=== PATIENT | female | born 1975 | race American Indian/Alaskan Native ===

== ENCOUNTER 2017-06-04 07:13 | Emergency (ER) | payer SELFPAY ==
[2017-06-04 07:42] VITALS: BP 159/104
[2017-06-04 08:05] LABS: Basophils % (Auto) 0.5 % (0.0-1.8); Eosinophils % (Auto) 0.7 % (0.0-4.3); Hematocrit 40.4 % (30.3-42.9); Hemoglobin 13.1 gm/dl (10.1-14.3); Mean Corpuscular HGB Conc 33 % (30-34); Mean Corpuscular Hemoglobin 29 pg (28-32); Mean Corpuscular Volume 89 fl (79-97); Platelet Count 286 K/mm3 (140-440); Red Blood Count 4.55 M/mm3 (3.65-5.03); Red Cell Distribution Width 14.4 % (13.2-15.2); White Blood Count 16.8 K/mm3 (4.5-11.0)
[2017-06-04 08:15] LABS: Anion Gap 16 mmol/L; BUN/Creatinine Ratio 11.42; Blood Urea Nitrogen 8 mg/dL (7-17); Calcium 8.4 mg/dL (8.4-10.2); Carbon Dioxide 23 mmol/L (22-30); Chloride 103.4 mmol/L (98-107); Glucose 87 mg/dL (65-100); Potassium 3.6 mmol/L (3.6-5.0); Sodium 139 mmol/L (137-145)
--- NOTE | 2017-06-04 08:29 | Emergency Department Report ---
ED ENT HPI - General Chief complaint: Sore Throat Stated complaint: SORE THROAT/BODY ACHES Time Seen by Provider: 06/04/17 08:26 Source: patient Mode of arrival: Ambulatory Limitations: No Limitations - History of Present Illness Initial comments: 42-year-old female past medical history hypertension, chlamydia infection, arthritis, GERD presents with complaint of 2 days of body aches and sore throat , also complaining of slightly increased urinary frequency. MD complaint: sore throat, other (increased urinary frequency) Onset/Timin Location: throat Severity: mild Quality: aching Consistency: intermittent Improves with: none Worsens with: none Context- Dental: history of dental caries - Related Data Home Medications Medication Instructions Recorded Confirmed Last Taken Amlodipine Besylate/Benazepril 1 cap PO DAILY 06/03/14 04/12/16 06/10/14 20:30 [amLODIPine-Benazepril 10/20 mg] ALPRAZolam [Xanax TAB] 1 mg PO TID PRN 04/12/16 04/12/16 Unknown Previous Rx's Medication Instructions Recorded Last Taken Type traMADol [Ultram 50 MG tab] 50 mg PO Q6HR PRN #14 tablet 04/12/16 Unknown Rx Benzocaine/Menthol [Cepacol Sore 1 each MM Q4H PRN #1 box 06/04/17 Unknown Rx Throat Lozenge] Naproxen [Naprosyn TAB] 500 mg PO BID PRN #20 tablet 06/04/17 Unknown Rx metroNIDAZOLE [Flagyl TAB] 500 mg PO Q12HR #14 tab 06/04/17 Unknown Rx Allergies Allergy/AdvReac Type Severity Reaction Status Date / Time No Known Allergies Allergy Verified 06/03/14 14:45 ED Dental HPI - General Chief complaint: Sore Throat Stated complaint: SORE THROAT/BODY ACHES Time Seen by Provider: 06/04/17 08:26 Source: patient Mode of arrival: Ambulatory Limitations: No Limitations - Related Data Home Medications Medication Instructions Recorded Confirmed Last Taken Amlodipine Besylate/Benazepril 1 cap PO DAILY 06/03/14 04/12/16 06/10/14 20:30 [amLODIPine-Benazepril 10/20 mg] ALPRAZolam [Xanax TAB] 1 mg PO TID PRN 04/12/16 04/12/16 Unknown Previous Rx's Medication Instructions Recorded Last Taken Type traMADol [Ultram 50 MG tab] 50 mg PO Q6HR PRN #14 tablet 04/12/16 Unknown Rx Benzocaine/Menthol [Cepacol Sore 1 each MM Q4H PRN #1 box 06/04/17 Unknown Rx Throat Lozenge] Naproxen [Naprosyn TAB] 500 mg PO BID PRN #20 tablet 06/04/17 Unknown Rx metroNIDAZOLE [Flagyl TAB] 500 mg PO Q12HR #14 tab 06/04/17 Unknown Rx Allergies Allergy/AdvReac Type Severity Reaction Status Date / Time No Known Allergies Allergy Verified 06/03/14 14:45 ED Review of Systems ROS: Stated complaint: SORE THROAT/BODY ACHES Other details as noted in HPI Constitutional: denies: chills, fever Eyes: denies: eye pain, eye discharge, vision change ENT: throat pain. denies: ear pain Respiratory: denies: cough, shortness of breath, wheezing Cardiovascular: denies: chest pain, palpitations Endocrine: no symptoms reported Gastrointestinal: denies: abdominal pain, nausea, diarrhea Genitourinary: discharge (whitish vaginal discharge). denies: urgency, dysuria Musculoskeletal: denies: back pain, joint swelling, arthralgia Skin: denies: rash, lesions Neurological: denies: headache, weakness, paresthesias Psychiatric: denies: anxiety, depression Hematological/Lymphatic: denies: easy bleeding, easy bruising ED Past Medical Hx - Past Medical History Previous Medical History?: Yes Hx Hypertension: Yes (since 2006) Hx Heart Attack/AMI: No Hx Congestive Heart Failure: No Hx Diabetes: No Hx GERD: Yes Hx Liver Disease: No Hx Renal Disease: No Hx Sickle Cell Disease: (was told she had sickle cell trait but another MD told her she didn't have ) Hx Arthritis: Yes (polyarthritis x 3yrs) Hx Seizures: No Hx Asthma: No Hx COPD: No Hx HIV: No - Surgical History Past Surgical History?: Yes Hx Pacemaker: No Hx Internal Defibrillator: No Hx Appendectomy: Yes Additional Surgical History: hysterectomy 06/11/14, right foot surgery 2007 - Social History Smoking Status: Never Smoker Substance Use Type: Non Opiate Pain, Prescribed - Medications Home Medications: Home Medications Medication Instructions Recorded Confirmed Last Taken Type Amlodipine Besylate/Benazepril 1 cap PO DAILY 06/03/14 04/12/16 06/10/14 20:30 History [amLODIPine-Benazepril 10/20 mg] ALPRAZolam [Xanax TAB] 1 mg PO TID PRN 04/12/16 04/12/16 Unknown History traMADol [Ultram 50 MG tab] 50 mg PO Q6HR PRN #14 tablet 04/12/16 Unknown Rx Benzocaine/Menthol [Cepacol Sore 1 each MM Q4H PRN #1 box 06/04/17 Unknown Rx Throat Lozenge] Naproxen [Naprosyn TAB] 500 mg PO BID PRN #20 tablet 06/04/17 Unknown Rx metroNIDAZOLE [Flagyl TAB] 500 mg PO Q12HR #14 tab 06/04/17 Unknown Rx ED Physical Exam - General Limitations: No Limitations General appearance: alert, in no apparent distress - Head Head exam: Present: atraumatic, normocephalic - Eye Eye exam: Present: normal appearance, PERRL, EOMI - ENT ENT exam: Present: mucous membranes moist - Expanded ENT Exam Expanded Throat exam: Positive: tonsillar erythema (no peritonsillar abscess but some tonsillar erythema) - Neck Neck exam: Present: normal inspection, lymphadenopathy (anterior cervical adenopathy) - Respiratory Respiratory exam: Present: normal lung sounds bilaterally. Absent: respiratory distress - Cardiovascular Cardiovascular Exam: Present: regular rate, normal rhythm. Absent: systolic murmur, diastolic murmur, rubs, gallop - GI/Abdominal GI/Abdominal exam: Present: soft, normal bowel sounds - External exam: Present: normal external exam Speculum exam: Present: vaginal discharge (white vaginal discharge) Bi-manual exam: Present: normal bi-manual exam - Extremities Exam Extremities exam: Present: normal inspection - Back Exam Back exam: Present: normal inspection, full ROM - Neurological Exam Neurological exam: Present: alert, oriented X3, CN II-XII intact, normal gait - Psychiatric Psychiatric exam: Present: normal affect, normal mood - Skin Skin exam: Present: warm, dry, intact, normal color. Absent: rash ED Course Vital Signs 06/04/17 07:39 Temperature 99.4 F Pulse Rate 85 Respiratory 20 Rate Blood Pressure 159/104 O2 Sat by Pulse 100 Oximetry ED Medical Decision Making - Lab Data Result diagrams: 06/04/17 07:45 06/04/17 07:45 - Medical Decision Making A/P: Tonsillitis, bacterial vaginosis, cervicitis 1- Treatment with Bicillin, Motrin 800 when necessary, throat lozenges 2- metronidazole 7 day course for BV,. Empiric cervicitis tx, GC culture sent, no signs of PID 3- follow-up with primary care and obgyn Critical care attestation.: If time is entered above; I have spent that time in minutes in the direct care of this critically ill patient, excluding procedure time. ED Disposition Clinical Impression: Tonsillitis, Bacterial vaginosis Disposition: TO HOME OR SELFCARE Is pt being admited?: No Does the pt Need Aspirin: No Condition: Stable Instructions: Bacterial Vaginosis (ED), Tonsillitis (ED) Prescriptions: Benzocaine/Menthol [Cepacol Sore Throat Lozenge] 1 each MM Q4H PRN #1 box PRN Reason: Sore Throat metroNIDAZOLE [Flagyl TAB] 500 mg PO Q12HR #14 tab Naproxen [Naprosyn TAB] 500 mg PO BID PRN #20 tablet PRN Reason: Pain Referrals: EN GARCIA MD [Referring] - 3-5 Days DAVID GRAY MD [Staff Physician] - 3-5 Days Forms: STI Treatment and Prevention, Work/School Release Form(ED) Time of Disposition: 09:31
[2017-06-04 08:30] LABS: Bilirubin,Urine NEG (Negative); Blood,Urine NEG (Negative); Ketones,Urine 20 mg/dL (Negative); Leukocyte Esterase,Urine NEG (Negative); Mucus,Urine FEW /HPF; Nitrite,Urine NEG (Negative); Protein,Urine <15 mg/dL mg/dL (Negative); Urobilinogen,Urine < 2.0 mg/dL (<2.0); WBC,Urine < 1.0 /HPF (0.0-6.0)
[2017-06-04] MEDS ORDERED: MOTRIN PO ONE (08:45)
[2017-06-04] MEDS ORDERED: BICILLIN L-A IM ONE (09:29)
[2017-06-04] MEDS ORDERED: ZITHROMAX PO ONE (09:34)
[2017-06-04] MEDS ORDERED: XYLOCAINE 1% MPF 5 mL INFILTRATI ONE (09:34)
[2017-06-04] MEDS ORDERED: ROCEPHIN IM ONE (09:34)
== END 2017-06-04 09:59 | disposition home or self-care (01) ==
LOC: ED 07:13
DX: J03.90 Acute tonsillitis, unspecified (principal); N76.0 Acute vaginitis; I10 Essential (primary) hypertension; K21.9 Gastro-esophageal reflux disease without esophagitis; M19.90 Unspecified osteoarthritis, unspecified site
CPT/HCPCS: 36415; 80048; 81001; 81025; 85025; 87116; 87210; 87430; 87591; 96372; 99284; J0561; J0696

== ENCOUNTER 2017-09-21 05:16 | Emergency (ER) | payer SELFPAY ==
--- NOTE | 2017-09-21 09:08 | Emergency Department Report ---
ED Lower Extremity HPI - General Chief Complaint: Extremity Problem,Nontraumatic Stated Complaint: FOOT PAIN Time Seen by Provider: 09/21/17 08:50 Source: patient Mode of arrival: Ambulatory Limitations: No Limitations - History of Present Illness Initial Comments: States her ankles have bothered her for a long time but worse since starting a new job. No trauma. Complaint: ankle injury -: Gradual, month(s) Injury: Ankle: Right, Left Type of Injury: unknown Place: home Severity: moderate Severity scale (0 -10): 7 Improves With: immobilization Worsens With: weight bearing Associated Symptoms: ambulatory. denies: swelling, numbness, tingling - Related Data Home Medications Medication Instructions Recorded Confirmed Last Taken Amlodipine Besylate/Benazepril 1 cap PO DAILY 06/03/14 04/12/16 06/10/14 20:30 [amLODIPine-Benazepril 10/20 mg] ALPRAZolam [Xanax TAB] 1 mg PO TID PRN 04/12/16 04/12/16 Unknown Previous Rx's Medication Instructions Recorded Last Taken Type Meloxicam 15 mg PO DAILY #30 tablet 09/21/17 Unknown Rx Allergies Allergy/AdvReac Type Severity Reaction Status Date / Time No Known Allergies Allergy Verified 06/03/14 14:45 ED Review of Systems ROS: Stated complaint: FOOT PAIN Other details as noted in HPI Comment: All other systems reviewed and negative Constitutional: denies: chills, fever Eyes: denies: eye pain, eye discharge, vision change ENT: denies: ear pain, throat pain Respiratory: denies: cough, shortness of breath, wheezing Cardiovascular: denies: chest pain, palpitations Endocrine: no symptoms reported Gastrointestinal: denies: abdominal pain, nausea, diarrhea Genitourinary: denies: urgency, dysuria, discharge Musculoskeletal: as per HPI. denies: back pain, joint swelling, arthralgia Skin: denies: rash, lesions Neurological: denies: headache, weakness, paresthesias Psychiatric: denies: anxiety, depression Hematological/Lymphatic: denies: easy bleeding, easy bruising ED Past Medical Hx - Past Medical History Previous Medical History?: Yes Hx Hypertension: Yes (since 2006) Hx Heart Attack/AMI: No Hx Congestive Heart Failure: No Hx Diabetes: No Hx GERD: Yes Hx Liver Disease: No Hx Renal Disease: No Hx Sickle Cell Disease: (was told she had sickle cell trait but another MD told her she didn't have ) Hx Arthritis: Yes (polyarthritis x 3yrs) Hx Seizures: No Hx Asthma: No Hx COPD: No Hx HIV: No - Surgical History Past Surgical History?: Yes Hx Pacemaker: No Hx Internal Defibrillator: No Hx Appendectomy: Yes Additional Surgical History: hysterectomy 06/11/14, right foot surgery 2007 - Social History Smoking Status: Never Smoker Substance Use Type: None - Medications Home Medications: Home Medications Medication Instructions Recorded Confirmed Last Taken Type Amlodipine Besylate/Benazepril 1 cap PO DAILY 06/03/14 04/12/16 06/10/14 20:30 History [amLODIPine-Benazepril 10/20 mg] ALPRAZolam [Xanax TAB] 1 mg PO TID PRN 04/12/16 04/12/16 Unknown History Meloxicam 15 mg PO DAILY #30 tablet 09/21/17 Unknown Rx ED Physical Exam - General Limitations: No Limitations General appearance: alert, in no apparent distress - Head Head exam: Present: atraumatic, normocephalic - Eye Eye exam: Present: normal appearance - ENT ENT exam: Present: mucous membranes moist - Neck Neck exam: Present: normal inspection - Respiratory Respiratory exam: Present: normal lung sounds bilaterally. Absent: respiratory distress - Cardiovascular Cardiovascular Exam: Present: regular rate, normal rhythm. Absent: systolic murmur, diastolic murmur, rubs, gallop - GI/Abdominal GI/Abdominal exam: Present: soft, normal bowel sounds - Extremities Exam Extremities exam: Present: normal inspection, other (normal exam. cms intact. ) - Back Exam Back exam: Present: normal inspection - Neurological Exam Neurological exam: Present: alert, oriented X3 - Psychiatric Psychiatric exam: Present: normal affect, normal mood - Skin Skin exam: Present: warm, dry, intact, normal color. Absent: rash ED Course Vital Signs 09/21/17 09:11 Temperature 97.6 F Pulse Rate 48 L Respiratory 22 Rate Blood Pressure 125/67 O2 Sat by Pulse 100 Oximetry - Reevaluation(s) Reevaluation #1: 09/21/17 10:11 NAD, stable for d/c. ED Lower Extremity MDM - Radiology Data Radiology results: report reviewed small bone spur R calcaneus otherwise normal, - Medical Decision Making Pt demanded imaging which is essentially negative. Discussed need for follow up. Pt states NSAID's upset stomach, advised to take with food as narcotics are not appropriate therapy for chronic ankle pain and that she will need to see ortho for further mgmt. - Differential Diagnosis sprain, fx, chronic pain, drug seeking Critical care attestation.: If time is entered above; I have spent that time in minutes in the direct care of this critically ill patient, excluding procedure time. ED Disposition Clinical Impression: Chronic ankle pain, bilateral Disposition: DC- TO HOME OR SELFCARE Is pt being admited?: No Condition: Good Instructions: Arthralgia (ED) Prescriptions: Meloxicam 15 mg PO DAILY #30 tablet Referrals: PRIMARY CARE, [Primary Care Provider] - 3-5 Days Time of Disposition: 10:15
[2017-09-21 09:14] VITALS: BP 125/67
--- NOTE | 2017-09-21 09:51 | XRay Report ---
BILATERAL ANKLES, 3 VIEWS HISTORY: Bilateral ankle pain. No history of trauma. FINDINGS: No comparison. Bone mineralization is normal. No displaced fracture, bone lesion, bony destruction or joint pathology is detected. There is a moderate plantar spur from the right calcaneus. The soft tissues are unremarkable. IMPRESSION: Unremarkable bilateral ankles. Right foot plantar spur.
== END 2017-09-21 10:40 | disposition home or self-care (01) ==
LOC: ED 05:16
DX: M25.571 Pain in right ankle and joints of right foot (principal); M25.572 Pain in left ankle and joints of left foot; G89.29 Other chronic pain; I10 Essential (primary) hypertension; K21.9 Gastro-esophageal reflux disease without esophagitis; M19.90 Unspecified osteoarthritis, unspecified site; Z90.710 Acquired absence of both cervix and uterus
CPT/HCPCS: 99283

== ENCOUNTER 2018-05-24 10:48 | Emergency (ER) | payer OTHER ==
[2018-05-24] MEDS ORDERED: MOTRIN PO ONE (12:32)
--- NOTE | 2018-05-24 12:32 | Emergency Department Report ---
Minor Respiratory - HPI Chief Complaint: Neck Pain/Injury Stated Complaint: THROAT Time Seen by Provider: 05/24/18 11:45 Duration: 3 Days Pain Location: Ear, Other (lump right neck) Severity: mild (4/10) Minor Respiratory: Yes Sore Throat (intermittent. No drooling or hoarseness.), Yes Able to Tolerate Fluids, Yes Ear Pain (right ear pain at 4/10), No Rhinorrhea, No Cough, No Sick Contacts, No Hemoptysis, No Chest Pain, No Shortness of Breath, No Fever Other History: This is a 43-year-old female here reporting that she is having right earache and lump of the right side of her neck for 3 days. She reports pain for the 4/10 achy. No medication taken for pain. Exacerbation or alleviating factors. Denies any fever or chills. Denies any cough, runny nose and nasal congestion, denies any chest pain or shortness of breath. Patient states that her primary care physician is Dr. Duglas Edge. Patient also reported that she is having dizziness with room spinning around states she is started having urinary earache. She denies any visual difficulties or headache. Denies any nausea or vomiting. ED Review of Systems ROS: Stated complaint: THROAT Other details as noted in HPI Constitutional: denies: chills, fever Eyes: denies: eye pain, eye discharge, vision change ENT: ear pain, other (right neck pain). denies: throat pain, dental pain, hearing loss, epistaxis, congestion Respiratory: denies: cough, shortness of breath, SOB with exertion, SOB at rest , stridor, wheezing Cardiovascular: denies: chest pain, palpitations, edema, syncope Gastrointestinal: denies: abdominal pain, nausea, vomiting, diarrhea Genitourinary: denies: abnormal menses, dyspareunia Musculoskeletal: myalgia (neck pain). denies: back pain, joint swelling, arthralgia Skin: denies: rash, lesions Neurological: vertigo. denies: headache, weakness, numbness, paresthesias, abnormal gait Psychiatric: depression Hematological/Lymphatic: swollen glands ED Past Medical Hx - Past Medical History Previous Medical History?: Yes Hx Hypertension: Yes (since 2006) Hx Heart Attack/AMI: No Hx Congestive Heart Failure: No Hx Diabetes: No Hx GERD: Yes Hx Liver Disease: No Hx Renal Disease: No Hx Sickle Cell Disease: Yes (sickle cell trait) Hx Arthritis: Yes (polyarthritis x 3yrs) Hx Seizures: No Hx Asthma: No Hx COPD: No Hx HIV: No - Surgical History Past Surgical History?: Yes Hx Pacemaker: No Hx Internal Defibrillator: No Hx Appendectomy: Yes Additional Surgical History: hysterectomy 06/11/14, right foot surgery 2007 - Family History Family history: hypertension - Social History Smoking Status: Never Smoker Substance Use Type: Alcohol, Prescribed - Medications Home Medications: Home Medications Medication Instructions Recorded Confirmed Last Taken Type Amlodipine Besylate/Benazepril 1 cap PO DAILY 06/03/14 04/12/16 06/10/14 20:30 History [amLODIPine-Benazepril 10/20 mg] ALPRAZolam [Xanax TAB] 1 mg PO TID PRN 04/12/16 04/12/16 Unknown History Meloxicam 15 mg PO DAILY #30 tablet 09/21/17 Unknown Rx Azithromycin [Zithromax Z-OSKAR] 250 mg PO DAILY 6 Days #1 pkg 05/24/18 Unknown Rx Cetirizine HCl [ZyrTEC] 10 mg PO QAM 14 Days #14 capsule 05/24/18 Unknown Rx Fluticasone [Flonase] 1 spray NS QDAY 14 Days #1 bottle 05/24/18 Unknown Rx Ibuprofen [Motrin] 600 mg PO Q8H PRN #12 tablet 05/24/18 Unknown Rx Meclizine [Antivert] 25 mg PO Q8H PRN #15 tablet 05/24/18 Unknown Rx Minor Respiratory Exam - Exam General: Vital signs noted. No distress. Alert and acting appropriately. This is a 43-year-old female patient well-nourished well-developed in no acute distress. HEENT: Yes Moist Mucous Membranes (uvula midline and oral airways patent), Yes Rhinorrhea, No Pharyngeal Erythema, No Pharyngeal Exudates, No Conjuctival Injection, No Frontal Tenderness, No Maxillary Tenderness Ear: Right TM Erythema (loss of bony landmark), Neither TM Bulge (bilateral TM congested), Neither EAC Pain, Neither EAC Discharge Neck: Yes Adenopathy (anterior cervical with tenderness to palpate.), Yes Supple (full range of motion.) Lungs: Yes Good Air Exchange (CTAB), No Wheezes, No Ronchi, No Stridor, No Cough , No Labored Respirations, No Retractions, No Use of Accessory Muscles, No Other Abnormal Lung Sounds Heart: Yes Regular (S1, S2), No Murmur Abdomen: Yes Normal Bowel Sounds, No Tenderness (NTTP in all quadrants), No Peritoneal Signs Skin: No Rash, No Edema Neurologic: Alert and oriented 3, normal gait. Normal reflexes, no motor or sensory deficits negative Romberg and pronator drift. Speech is clear and fluid without any facial droop. Musculoskeletal: Unremarkable. Extremity: No CCE, +2 pulses. Full range of motion to all extremities ED Course Vital Signs 05/24/18 10:55 Temperature 98.5 F Pulse Rate 72 Respiratory 20 Rate Blood Pressure 156/102 O2 Sat by Pulse 98 Oximetry Vital Signs 05/24/18 05/24/18 05/24/18 10:55 12:46 13:28 Temperature 98.5 F Pulse Rate 72 Respiratory 20 20 Rate Blood Pressure 156/102 Blood Pressure 142/78 [Left] O2 Sat by Pulse 98 Oximetry - Reevaluation(s) Reevaluation #1: 05/24/18 12:34 Patient received Motrin 800 mg by mouth in emergency room for right ear pain. ED Medical Decision Making - Medical Decision Making This is a 43-year-old female here reports that she is having right earache for 3 days with tender swollen area to her right neck. She has not taken any medication for pain and she does have a primary care doctor but she states that she did not have time to schedule an appointment and the appointment for 1 month for physical exam. I saw and examined the patient and she is found to have right otitis media with bilateral TM congested. Her neurological status is intact she said when she stands up she feels like the room is spinning. She also has adenitis to anterior cervical lymph nodes. Patient is given pain medication emergency room with relief. She is debating taken antibiotic because she said she doesn't like to swallow pills. I told her that she will need to take antibiotics and operative Z-Oskar which is a short course of antibiotic that she has to take once a day and she agrees. Her nasal mucosa is pale and boggy with clear drainage. Patient voiced understanding of diagnosis and treatment plan and need to follow up with her primary care in 3-5 days Assessment/plan Right otitis media-was started on Z-Oskar Otalgia right ear and right neck pain-Motrin 800 mg by mouth given crutches for pain and I will send her home on Motrin. Allergic rhinitis-Flonase and Zyrtec prescription Adenitis-resolved with antibiotic Patient educated on diagnosis, treatment plan, medication and need to follow up with her primary care physician and she voiced understanding. Discharged home in stable condition with prescription for Zyrtec, Motrin, Flonase and Z-Oskar. Her vital signs are stable and she is afebrile and her pain has resolved. I discussed with her head she needs to follow up with her primary care physician in 3-5 days and she voiced understanding and I also discussed with her for her condition worsens to return to the emergency room. - Differential Diagnosis mastoiditis, otitis externa, perforated TM, otitis media, allergic rhinitis Critical care attestation.: If time is entered above; I have spent that time in minutes in the direct care of this critically ill patient, excluding procedure time. ED Disposition Clinical Impression: Otalgia, right ear, Adenitis, acute Otitis media Qualifiers: Otitis media type: unspecified Chronicity: acute Qualified Code(s): H66.90 - Otitis media, unspecified, unspecified ear Disposition: DC-01 TO HOME OR SELFCARE Is pt being admited?: No Does the pt Need Aspirin: No Condition: Stable Instructions: Otitis Media (ED), Allergic Rhinitis (ED), Adenitis (ED) Additional Instructions: Please take antibiotic as prescribed Follow-up with primary care physician in 3-5 days Motrin for ear pain but please take with food as this medication can cause irritation to stomach lining If your condition worsens to include difficulty breathing, swallowing, chest pain, nausea and vomiting and fever, please return to the emergency room TAMERA. Take Zyrtec and Flonase to relieve congestion Increasing fluid intake Use nasal saline wash to flush and nostrils. Prescriptions: Azithromycin [Zithromax Z-OSKRA] 250 mg PO DAILY 6 Days #1 pkg Cetirizine HCl [ZyrTEC] 10 mg PO QAM 14 Days #14 capsule Fluticasone [Flonase] 1 spray NS QDAY 14 Days #1 bottle Ibuprofen [Motrin] 600 mg PO Q8H PRN #12 tablet PRN Reason: Pain Meclizine [Antivert] 25 mg PO Q8H PRN #15 tablet PRN Reason: Vertigo Referrals: DUGLAS EPPS MD [Primary Care Provider] - 3-5 Days Forms: Work/School Release Form(ED)
[2018-05-24 16:35] VITALS: BP 148/91
== END 2018-05-24 13:45 | disposition home or self-care (01) ==
LOC: ED 10:48
DX: H66.91 Otitis media, unspecified, right ear (principal); L04.0 Acute lymphadenitis of face, head and neck; I10 Essential (primary) hypertension; K21.9 Gastro-esophageal reflux disease without esophagitis; M19.90 Unspecified osteoarthritis, unspecified site; Z90.710 Acquired absence of both cervix and uterus
CPT/HCPCS: 99282

== ENCOUNTER 2019-06-16 22:12 | Emergency (ER) | payer SELFPAY ==
[2019-06-16 22:31] VITALS: BP 144/86
[2019-06-16] MEDS ORDERED: ZOFRAN ODT PO ONE (22:44)
[2019-06-16] MEDS ORDERED: ZOFRAN ODT ONE (22:47)
== END 2019-06-17 01:30 | disposition left against medical advice (07) ==
LOC: ED 22:12
DX: R10.9 Unspecified abdominal pain (principal); R19.7 Diarrhea, unspecified; Z53.21 Procedure and treatment not carried out due to patient leaving prior to being seen by health care provider
CPT/HCPCS: Q0162

== ENCOUNTER 2021-10-24 09:59 | Day surgery (SDC) | payer OTHER ==
[~2021-10-24 09:59] MED LIST: ceFAZolin/STERILE WATER 2 GM/20 ML SYRINGE IV NR
[2021-10-24] MEDS ORDERED: LACTATED RINGERS 1,000 ML ONE (10:20)
--- NOTE | 2021-10-24 10:34 | Anesthesia Consultation ---
Anesthesia Consult and Med Hx Date of service: 10/24/21 - Airway Anesthetic Teeth Evaluation: Good ROM Head & Neck: Adequate Mental/Hyoid Distance: Adequate Mallampati Class: Class II Intubation Access Assessment: Good - Pulmonary Exam CTA: Yes - Cardiac Exam Cardiac Exam: RRR - Pre-Operative Health Status ASA Pre-Surgery Classification: ASA2 Proposed Anesthetic Plan: MAC - Pulmonary Hx Smoking: No Hx Asthma: No Hx Respiratory Symptoms: No SOB: No COPD: No Hx Pneumonia: No Hx Sleep Apnea: No (JAIME PRE SCREEN LOW RISK) - Cardiovascular System Hx Hypertension: Yes (2006) Hx Coronary Artery Disease: No Hx Heart Attack/AMI: No Hx Angina: No Hx Percutaneous Transluminal Coronary Angioplasty (PTCA): No Hx Cardia Arrhythmia: No Hx Pacemaker: No Hx Internal Defibrillator: No Hx Valvular Heart Disease: No Hx Heart Murmur: No Hx Peripheral Vascular Disease: No - Central Nervous System Hx Neuromuscular Disorder: No Hx Seizures: No CVA: No Hx Back Pain: Yes (CHRONIC) Hx Psychiatric Problems: No - Gastrointestinal Hx Ulcer: No Hx Gastroesophageal Reflux Disease: Yes (H.H) - Endocrine Hx Renal Disease: No Hx End Stage Renal Disease: No Hx Cirrhosis: No Hx Liver Disease: No Hx Insulin Dependent Diabetes: No Hx Non-Insulin Dependent Diabetes: No Hx Thyroid Disease: No Hx Hypothyroidism: No Hx Hyperthyroidism: No - Hematic Hx Anemia: Yes (NOT RECENT) Hx Sickle Cell Disease: No (SC TRAIT ONLY) - Other Systems Hx Alcohol Use: Yes (HX ABUSE PER OLD CHART , DRY X 11 YRS) Hx Substance Use: No Hx Cancer: No Hx Obesity: Yes
--- NOTE | 2021-10-24 10:35 | Anesthesia Day of Surgery ---
Anesthesia Day of Surgery - Day of Surgery Patient Examined: Yes Patient H&P Reviewed: Yes Patient is NPO: Yes
[2021-10-24] MEDS ORDERED: MIDAZOLAM 2 MG/2 ML INJ IV NR (11:00)
[2021-10-24] MEDS ORDERED: LACTATED RINGERS 1,000 ML IV SCH (11:00)
[2021-10-24] MEDS ORDERED: LIDOCAINE (1%) 10 MG/1 ML VIAL 20 ML MDV ONE (11:52)
[2021-10-24] MEDS ORDERED: BUPIVACAINE/PF (0.5%) 5 MG/1 ML 30 ML VIAL INFILTRATI ONE (11:52)
[2021-10-24] MEDS ORDERED: fentaNYL 100 MCG/2 ML INJ ONE (12:09)
[2021-10-24] MEDS ORDERED: propofoL 200 MG/20 ML VIAL IV ONE (12:09)
[2021-10-24] MEDS ORDERED: LIDOCAINE (1%) 10 MG/1 ML VIAL 20 ML MDV INFILTRATI ONE (12:17)
[2021-10-24] MEDS ORDERED: BUPIVACAINE/PF (0.5%) 5 MG/1 ML 10 ML VIAL INFILTRATI ONE (12:17)
--- NOTE | 2021-10-24 12:44 | Short Stay Summary ---
Short Stay Documentation Date of service: 10/24/21 - History Principal diagnosis: lipoma of upper back H&P: obtained from office - Allergies and Medications Current Medications: Allergies No Known Allergies Allergy (Verified 06/03/14 14:45) Home Medications Medication Instructions Recorded Confirmed Last Taken Type ALPRAZolam [Xanax TAB] 1 mg PO PRN PRN 04/12/16 10/18/21 Unknown History Meloxicam 15 mg PO DAILY #30 tablet 09/21/17 10/18/21 Unknown Rx Ibuprofen [Motrin] 600 mg PO Q8H PRN #12 tablet 05/24/18 10/18/21 Unknown Rx Meclizine [Antivert] 25 mg PO Q8H PRN #15 tablet 05/24/18 10/18/21 Unknown Rx Amlodipine Besylate/Benazepril 1 each PO DAILY 10/18/21 10/18/21 Unknown History [Amlodipine-Benazepril 10-40 mg] Cetirizine HCl [ZyrTEC] 10 mg PO PRN PRN 10/18/21 10/18/21 Unknown History Active Medications Cefazolin Sodium (Cefazolin/Sterile Water 2 Gm/20 Ml Syringe) 2 gm IV PREOP NR Stop: 10/24/21 14:00 Lactated Ringer's (Lactated Ringers) 1,000 mls @ 100 mls/hr IV DIRECT KAREN Last Admin: 10/24/21 10:35 Dose: 100 mls/hr Documented by: Midazolam HCl (Midazolam 2 Mg/2 Ml Inj) 2 mg IV PREOP NR Stop: 10/24/21 23:59 Last Admin: 10/24/21 10:45 Dose: 2 mg Documented by: - Brief post op/procedure progress note Date of procedure: 10/24/21 Pre-op diagnosis: lipoma of upper back Post-op diagnosis: same Procedure: excision of lipoma of upper back Anesthesia: MAC, local Findings: 6.5 cm lipoma of upper back Surgeon: AIXA STEVENSON Estimated blood loss: minimal Pathology: list (lipoma of upper back) Specimen disposition: to lab Condition: stable - Hospital course Hospital course: Patient observed in PACU and discharged home in stable condition - Disposition Condition at discharge: Good Disposition: 01 HOME / SELF CARE / HOMELESS Short Stay Discharge Plan Activity: no restrictions Diet: regular Wound: open to air, per your surgeon's advice Additional Instructions: See printed instructions Follow up with: JANICE CARROLL MD [Primary Care Provider] - 7 Days AIXA STEVENSON DO [Staff Physician] - 14 Days Prescriptions: HYDROcodone/APAP 5-325 [[place] 5/325] 1 each PO Q6HR PRN #5 tablet PRN Reason: Pain
--- NOTE | 2021-10-24 13:18 | Operative Report ---
Operative Report Operative Report: Date of procedure: 10/24/21 Pre-op diagnosis: lipoma of upper back Post-op diagnosis: same Procedure: excision of lipoma of upper back Anesthesia: MAC, local Findings: 6.5 cm lipoma of upper back Surgeon: AIXA STEVENSON Estimated blood loss: minimal Pathology: list (lipoma of upper back) Specimen disposition: to lab Condition: stable Hospital course: Patient observed in PACU and discharged home in stable condition Condition at discharge: Good Disposition: 01 HOME / SELF CARE / HOMELESS HPI and indication: Patient is a 46-year-old female who presents to surgery clinic with a mass of her left upper back. This has been present for some time and has been causing discomfort. It was recommended that the mass be excised. All risk benefits, alternatives to surgery were discussed with the patient and questions answered. Consent obtained. Procedure in detail: Patient was identified in the preoperative area, taken back to the operating room, placed on the operating room table in left lateral decubitus position, supported with a alfaro bag and all bony prominences were padded appropriately. After anesthesia was induced, the left upper back was prepped and draped in usual sterile fashion and a timeout was performed. Local anesthetic was injected into the skin at the intended incision site. A transverse incision was made in the skin over the cyst using a 15 blade. Dissection was carried down through the skin using electrocautery. The mass was lobulated and fatty, consistent with a lipoma. Using a combination of blunt dissection with a hemostat and electrocautery, the mass was carefully dissected away from the surrounding tissue circumferentially. Once normal fatty tissue was identified the entire mass was removed from the subcutaneous tissue using Bovie electrocautery. This was measured at 6.5cm and was passed off the table as a specimen. The wound was irrigated. Once hemostasis was ensured, the deep dermal layer was closed using interrupted 3-0 Vicryl sutures. The skin was closed with 4-0 Monocryl subcuticular stitches and skin glue. At the end of the case, all sponge, instrument, sharp counts were correct 2. The patient was awoken from anesthesia and taken to PACU in stable condition.
[2021-10-24] MEDS ORDERED: ONDANSETRON 4 MG/2 ML INJ ONE (13:57)
--- NOTE | 2021-10-24 18:20 | Post Anesthesia Evaluation ---
- Post Anesthesia Evaluation Patient Participated: Yes Airway Patent: Yes Stable Respiratory Function: Yes Nausea/Vomiting: No Temp > 96.8F: Yes Pain Manageable: Yes Adequeate Hydration: Yes Anesthesia Complications: No Block Receding Appropriately: Not Applicable Patient on Ventilator: No
[2021-10-24 18:35] VITALS: BP 98/48
== END 2021-10-24 10:00 | disposition home or self-care (01) ==
LOC: OR 09:59
PROVIDERS: ATTEND Surgery
DX: D17.1 Benign lipomatous neoplasm of skin and subcutaneous tissue of trunk (principal); Z20.822 Contact with and (suspected) exposure to COVID-19; I10 Essential (primary) hypertension; Z79.899 Other long term (current) drug therapy; Z90.710 Acquired absence of both cervix and uterus; Z98.890 Other specified postprocedural states
CPT/HCPCS: 21931; 88304; J0690; J2250; J2405; J2704; J3010; J3490; J7120; U0003; J7121

== ENCOUNTER 2021-12-07 23:08 | Emergency (ER) | payer OTHER | END 2021-12-08 04:25 | disposition left against medical advice (07) | LOC: ED 23:08 | DX: R07.9 Chest pain, unspecified (principal); Z53.21 Procedure and treatment not carried out due to patient leaving prior to being seen by health care provider ==